=== PATIENT | male | born 1975 | race Caucasian/White ===

== ENCOUNTER 2017-09-15 00:08 | Emergency (ER) | payer SELFPAY ==
[~2017-09-15] VITALS: Ht 172.7 cm; Wt 108.9 kg
[2017-09-15 00:10] VITALS: BP_SYST 127
[2017-09-15 01:01] VITALS: BP_SYST 127
== END 2017-09-15 01:01 | disposition home or self-care (01) ==
LOC: SED 00:08
DX: J06.9 Acute upper respiratory infection, unspecified (principal)
CPT/HCPCS: 36415; 86710; 99284